=== PATIENT | male | born 1995 | race Caucasian/White ===

== ENCOUNTER 2016-12-12 20:21 | Emergency (ER) | payer BC ==
[~2016-12-12] VITALS: Ht 188 cm; Wt 86.4 kg
[~2016-12-12 20:21] MED LIST: PROMETHAZINE12.5 M5 PO; PROTONIX 40MG T40 MG PO; PROTONIX20 MG PO; ZOFRAN 4MG T4 MG/TAB PO; ZOFRAN ODT4 MG PO
[2016-12-12 20:30] VITALS: TEMP 98.9
[2016-12-12 21:02] LABS: BASO % 0.2 % (0.0-2.0); GRAN # 18.1 (1.4-6.5); GRAN % 89.4 % (42.2-75.2); HEMATOCRIT 43.4 % (42.0-52.0); HEMOGLOBIN 15.8 g/dl (13.5-18.0); LYMPH # 0.9 (1.2-3.4); LYMPH % 4.6 % (20.0-51.0); MEAN CELL VOLUME 88 fl (80.0-100.0); MEAN CORPUSCULAR HEMOGLOBIN 32 pg (27.0-31.0); MEAN CORPUSCULAR HGB CONC 36 g/dl (33.0-37.0); MEAN PLATELET VOLUME 8.6 fl (7.4-10.4); MONO # 1.1 (0.1-0.6); MONO % 5.4 % (1.7-9.3); PLATELET COUNT 328 K/mm3 (130-400); RED BLOOD COUNT 4.94 M/mm3 (4.20-5.60); REDCELL DISTRIBUTION WIDTH-CV 12.1 % (11.5-14.5)
[2016-12-12 21:03] LABS: WHITE BLOOD COUNT 20.3 K/mm3 (4.8-10.8)
[2016-12-12 21:12] LABS: ADJUSTED CALCIUM 9.2 mg/dL (8.4-10.2); ALANINE AMINOTRANSFERASE 42 U/L (21-72); ALBUMIN 5.5 gm/dL (3.5-5.0); ALKALINE PHOSPHATASE 98 U/L (50-136); ANION GAP 24 mmol/L (7-16); BILIRUBIN,TOTAL 1.4 mg/dL (0.0-1.0); BLOOD UREA NITROGEN 21 mg/dL (9-20); CALCIUM 10.4 mg/dL (8.4-10.2); CARBON DIOXIDE 25 mmol/L (22-30); CHLORIDE 97 mmol/L (98-107); CREATININE, serum 1.01 mg/dL (0.66-1.25); GLUCOSE 155 mg/dL (74-106); LIPASE 38 U/L (23-300); SODIUM 146 mmol/L (137-145); TOTAL PROTEIN 8.8 gm/dL (6.4-8.2)
[2016-12-12 21:13] LABS: C-REACTIVE PROTEIN < 0.5 mg/dL (0.0-0.9)
[2016-12-12] MEDS ORDERED: ZOFRAN 4MG T4 MG/TAB PO (22:47)
[2016-12-12 23:13] VITALS: BP 142/62; PULSE 60
== END 2016-12-12 23:15 | disposition home or self-care (01) ==
LOC: COL.ER 20:21
PROVIDERS: Emergency Medicine
DX: R11.10 Vomiting, unspecified (principal)
CPT/HCPCS: J2405; J2550; J7030

== ENCOUNTER → 2017-03-08 | Outpatient (CLI) | payer BC | LOC: COL.RAD 12:52 | DX: S83.511A Sprain of anterior cruciate ligament of right knee, initial encounter (principal); M89.9 Disorder of bone, unspecified; R60.0 Localized edema; M22.8X1 Other disorders of patella, right knee; M25.461 Effusion, right knee ==